=== PATIENT | male | born 1960 | race Caucasian/White ===

== ENCOUNTER 2025-04-01 09:56 | Outpatient (CLI) | payer OTHER, SELFPAY ==
--- NOTE | 2025-04-01 13:44 | DI.RAD_ITS ---
Exam(s) XR FOOT RT COMPLETE EXAM: XR FOOT RT COMPLETE CLINICAL HISTORY: Right foot pain,m79.671. TECHNIQUE: 2D digital imaging was performed. Three views. COMPARISON: No exams were available for comparison FINDINGS: BONES: No acute fracture is present. No bony destructive lesion is seen. Small enthesophyte at Achilles insertion. JOINTS: No dislocation present. Hammertoe deformity of the 3rd toe. The 3rd toe overlaps the 2nd toe. SOFT TISSUE: Normal. IMPRESSION: Second toe hammertoe deformity. DATA REPOSITORY: RADIATION DOSE DELIVERED:
--- NOTE | 2025-04-01 13:45 | DI.RAD_ITS ---
Exam(s) XR FOOT LT COMPLETE EXAM: XR FOOT LT COMPLETE CLINICAL HISTORY: Left foot pain,m79.672. TECHNIQUE: 2D digital imaging was performed. Three views. COMPARISON: CR XR FOOT RT COMPLETE from 04/01/2025 FINDINGS: BONES: No acute fracture is present. No bony destructive lesion is seen. Tiny heel spurs JOINTS: No dislocation present. Minimal degenerative changes. SOFT TISSUE: Normal. IMPRESSION: Minimal degenerative changes. DATA REPOSITORY: RADIATION DOSE DELIVERED:
== END 2025-04-01 10:16 ==
PROVIDERS: Visit Provider Podiatrist
DX: M79.671 Pain in right foot (principal); M79.672 Pain in left foot; M20.41 Other hammer toe(s) (acquired), right foot
CPT/HCPCS: 73630